=== PATIENT | female | born 1960 | race Caucasian/White ===

== ENCOUNTER 2016-10-27 08:48 | Inpatient (IN) | payer MEDICAID ==
--- NOTE | 2016-10-27 09:49 | ER Document Report ---
ED Neuro Symptoms/Deficit - General Mode of Arrival: Ambulatory Information source: Patient, Relative Notes: Patient is a 55-year-old female presenting to the emergency department with possible stroke symptoms. Patient states she had a weakness onset at 1300 yesterday and then numbness at 1500 yesterday. Patient also fell while trying to go to the bathroom last night. Patient does not complain of any injuries or head injuries related to the fall. Patient is experiencing weakness and numbness to her right hand/arm, right face, and right leg. Patient also has slurred speech. Patient has history of type 2 diabetes mellitus, hypertension, hypothyroidism, and hyperlipidemia. Patient takes metformin, glyburide, chlorthalidone, Synthroid and a hyperlipidemia medication as well which she cannot remember the name of. Patient denies any history of stroke or coronary artery disease. Patient's family and friends are at the bedside. Patient's primary care physician is Dr. Jericho Wells in [place]. TRAVEL OUTSIDE OF THE [place] IN LAST 30 DAYS: No - HPI Patient complains to provider of: Facial Droop, Falling, Speech Impairment, Weakness, Other - numbness Onset: Yesterday - Refer to HPI notes New weakness: RUE, RLE, R facial Altered sensation: RLE, R facial Decreased ability to stand/walk: Weak <WILY GUARDADO - Last Filed: 10/27/16 10:10> - General Notes: This 55-year-old female patient with diabetes, hypertension, hyperlipidemia, hypothyroidism appears to have suffered a left basal ganglia infarct yesterday afternoon. She has been symptomatic for over 20 hours. She is not a TPA candidate at this time due to the length of time since onset of symptoms. <ANNA HARRISON - Last Filed: 10/27/16 10:36> - General Chief Complaint: S/S of Possible Stroke Stated Complaint: RIGHT SIDE NUMBNESS Time Seen by Provider: 10/27/16 09:19 - Related Data Allergies/Adverse Reactions: strawberry Allergy (Verified 10/27/16 09:20) Past Medical History - General Information source: Patient, Relative - Social History Smoking Status: Never Smoker Cigarette use (# per day): No Chew tobacco use (# tins/day): No Frequency of alcohol use: Occasional Drug Abuse: None Family History: None Patient has suicidal ideation: No Patient has homicidal ideation: No - Past Medical History Cardiac Medical History: Reports: Hx Hypercholesterolemia, Hx Hypertension Endocrine Medical History: Reports: Hx Diabetes Mellitus Type 2, Hx Hypothyroidism Past Surgical History: Reports: Hx Tubal Ligation - Immunizations Hx Diphtheria, Pertussis, Tetanus Vaccination: No <WILY GUARDADO - Last Filed: 10/27/16 10:10> Review of Systems - Review of Systems Constitutional: See HPI, Weakness EENT: See HPI Cardiovascular: No symptoms reported Respiratory: No symptoms reported Gastrointestinal: No symptoms reported Genitourinary: No symptoms reported Female Genitourinary: No symptoms reported Musculoskeletal: See HPI Skin: No symptoms reported Hematologic/Lymphatic: No symptoms reported Neurological/Psychological: See HPI, Weakness, Speech impairment, Numbness -: Yes All other systems reviewed and negative <WILY GUARDADO - Last Filed: 10/27/16 10:10> Physical Exam - Vital signs Vitals: Temp Pulse Resp BP Pulse Ox 97.8 F 102 H 20 174/87 H 99 10/27/16 08:49 10/27/16 08:49 10/27/16 08:49 10/27/16 08:49 10/27/16 08:49 - Notes Notes: GENERAL: Alert, interacts well. Slurred speech. Mild distress. HEAD: Normocephalic, atraumatic. Right sided facial weakness. EYES: Appear normal. Pupils equal, round, and reactive to light. ENT: Moist mucus membranes. When protruding the tongue, it deviates to the right. NECK: Full range of motion. Supple. LUNGS: Clear to auscultation bilaterally, no wheezes, rales, or rhonchi. No respiratory distress. HEART: Regular rate and rhythm. No murmurs, gallops, or rubs. ABDOMEN: Soft, non-tender. Non-distended. Normal bowel sounds. EXTREMITIES: Right upper extremity and right lower extremity weakness, patient can lift these extremities a few inches off the bed against gravity but cannot hold them for very long before they fall back to the bed. NEUROLOGICAL: Alert and oriented x3. Slurred speech. PSYCH: Normal affect, normal mood. SKIN: Warm, dry, normal turgor. <GEOWILY - Last Filed: 10/27/16 10:10> - Vital signs Vitals: Temp Pulse Resp BP Pulse Ox 97.8 F 102 H 20 174/87 H 99 10/27/16 08:49 10/27/16 08:49 10/27/16 08:49 10/27/16 08:49 10/27/16 08:49 <ANNA HARRISON - Last Filed: 10/27/16 10:36> Course - Vital Signs Vital signs: Temp Pulse Resp BP Pulse Ox 97.8 F 102 H 20 174/87 H 99 10/27/16 08:49 10/27/16 09:15 10/27/16 09:15 10/27/16 09:15 10/27/16 09:15 - Laboratory Result Diagrams: 10/27/16 09:14 10/27/16 09:14 Laboratory results interpreted by me: 10/27/16 09:12 POC Glucose 269 H <WILY GUARDADO - Last Filed: 10/27/16 10:10> - Vital Signs Vital signs: Temp Pulse Resp BP Pulse Ox 97.8 F 102 H 13 167/86 H 99 10/27/16 08:49 10/27/16 09:15 10/27/16 10:01 10/27/16 10:00 10/27/16 10:01 - Laboratory Result Diagrams: 10/27/16 09:14 10/27/16 09:14 Laboratory results interpreted by me: 10/27/16 10/27/16 10/27/16 09:12 09:14 09:14 WBC 11.0 H BUN 26 H Est GFR (Non-Af Amer) 53 L Glucose 266 H POC Glucose 269 H Calcium 10.3 H - Diagnostic Test Radiology reviewed: Image reviewed, Reports reviewed - CT scan shows 2 left basal ganglia lacunar infarcts - EKG Interpretation by Nh EKG shows normal: Sinus rhythm, [place], Intervals, QRS Complexes, ST-T Waves Rate: Normal - 99 Rhythm: NSR When compared to previous EKG there are: Previous EKG unavailable - Consults Jane Reyes Time consulted: 10:30 Consulted provider: will come to ER <ANNA HARRISON - Last Filed: 10/27/16 10:36> ED [employer]/Exc Criteria ED NIH Stroke Scale - NIH Stroke Scale When completed:: Protocol *: 1. NIH scale should be completed with appropriate accompanying assessment tools. *: 2. The NIH should reflect what the patient is capable of doing and should not be coached by the clinician. 1a. Level of Consciousness: 0=Alert;keenly responsive -: 1=Drowsy -: 2=Obtunded -: 3=Coma/unresponsive or reflex to noxious stimuli. 1a. Responses: 0 1b. Orientation Questions: a. What month is it? -: b. How old are you? -: 0=Answers both questions correctly. -: 1=Answers one question correctly or patient is intubated or has orotracheal trauma. -: 2=Answers neither question correctly. 1b. Responses: 0 1c. Response to commands: a. Open and close eyes? -: b. Service Station Console Operator and release hand? -: Credit is given despite weakness. Demonstration of task is permitted. Substitute command if hands cannot be used. -: 0=Performs both tasks correctly -: 1=Performs one task correctly -: 2=Performs neither task correctly 1c. Responses: 0 2. Gaze: Establish eye contact and instruct patient to "Follow my finger" -: 0=Normal -: 1=Partial gaze palsy. Gaze is abnormal in one or both eyes, but where forced deviation or total gaze paresis is not present. -: 2=Forced deviation or total gaze paresis. 3. Visual Man: Sees fingers in all four quadrants. -: 0=No visual loss. -: 1=Partial hemianopsia. -: 2=Complete hemianopsia. -: 3=Bilateral hemianopsia (including Cortical blindness) 4. Facial Movement: Instruct patient to: -: a. Show me your teeth -: b. Raise your eyebrows -: c. Close your eyes -: d. Smile -: 0=Normal symmetrical movement -: 1=Minor paralysis (flattened nasolabial fold, asymmetry on smiling). -: 2=Partial paralysis (total or near total paralysis of lower face). -: 3=Complete paralysis of upper and lower face 4. Responses: 1 - tongue deviates to the right side 5. Motor functions (left arm): Alternate sides and extend each arm with palms down (90 degrees if sitting or 45 degrees for supine). -: 0=No drift;limb holds for full 10 seconds. -: 1=Drift; limb holds but drifts down before full 10 seconds, but does not hit bed. -: 2=Some effort against gravity; limb cannot get to or maintain position. -: 3=No effort against gravity; limb falls. -: 4=No movement. -: UN=Amputation, joint fusion, explain in comments. 5. Responses (left arm): 0 5. Motor Functions (right arm): Alternate sides and extend each arm with palms down (90 degrees if sitting or 45 degrees for supine). -: 0=No drift;limb holds for full 10 seconds. -: 1=Drift; limb holds but drifts down before full 10 seconds, but does not hit bed. -: 2=Some effort against gravity; limb cannot get to or maintain position. -: 3=No effort against gravity; limb falls. -: 4=No movement. -: UN=Amputation, joint fusion, explain in comments. 5. Responses (right arm): 2 6. Motor Functions (left leg): With patient lying supine, alternate sides and extend each leg (30 degrees always while supine). -: 0=No drift, leg holds position for full 5 seconds -: 1=Drift; leg falls before full 5 seconds but does not hit bed. -: 2=Some effort against gravity, leg falls to bed but some effort against gravity. -: 3=No effort against gravity, leg falls to bed immediately. -: 4=No movement. -: UN=Amputation, joint fusion; explain in comments. 6. Responses (left leg): 0 6. Motor Functions (right leg): With patient lying supine, alternate sides and extend each leg (30 degrees always while supine). -: 0=No drift, leg holds position for full 5 seconds -: 1=Drift; leg falls before full 5 seconds but does not hit bed. -: 2=Some effort against gravity, leg falls to bed but some effort against gravity. -: 3=No effort against gravity, leg falls to bed immediately. -: 4=No movement. -: UN=Amputation, joint fusion; explain in comments. 6. Responses (right leg): 2 7. Limb Ataxia: With eyes open instruct patient to: -: a. "Touch your finger to your nose". -: b. "Touch your heel to your brower" -: 0=Absent -: 1=Present in one limb. -: 2=Present in two limbs. -: UN=Amputation or joint fusion; explain in comments. 8. Sensory: Test sensation using pinprick or noxious stimuli. Test as many body parts as possible. -: 0=Normal;no sensory loss -: 1=Mile to moderate sensory loss (patient feels pin prick but is less sharp on affected side). -: 2=Severe or total sensory loss. 9. Best Language: Instruct patient to: -: a. "Describe what you see in this picture." -: b. "Name the items in this picture." -: c. "Read these sentences." -: 0=No aphasia, normal -: 1=Mild to moderate aphasia. -: 2=Severe aphasia -: 3=Mute, global aphasia, no usable speech or auditory comprehension. 10. Articulation, Dysarthia: Instruct patient to: -: "Read these words" or "Repeat these words" -: 0=Normal -: 1=Mild to moderate; patient may slur some words but can be understood without difficulty. -: 2=Severe; patients speech so slurred as to be unintelligible in the absence of dysphasia. -: UN=Intubated or other physical barrier, explain in comments. 11. Extinction or inattention: 0=No abnormality -: 1= Visual, tactile, auditory, spatial, or personal inattention or extinction to bilateral simulation in one or the sensory modalities. -: 2=Profound herman-inattention or herman-inattention to more than one modality; does not recognize own hand. Total Score: 5 <WILY GUARDADO - Last Filed: 10/27/16 10:10> Discharge <WILY GUARDADO - Last Filed: 10/27/16 10:10> - Discharge Admitting Provider: Hospitalist Unit Admitted: ALEX Guerrier Attestation: 10/27/16 10:35 I personally performed the services described in the documentation, reviewed and edited the documentation which was dictated to the scribe in my presence, and it accurately records my words and actions. <ANNA HARRISON - Last Filed: 10/27/16 10:36> - Discharge Clinical Impression: Acute lacunar infarction Diabetes Qualifiers: Diabetes mellitus type: type 2 Diabetes mellitus complication status: without complication Diabetes mellitus usp insulin use: without usp use Qualified Code(s): E11.9 - Type 2 diabetes mellitus without complications Condition: Stable Disposition: ADMITTED INPATIENT Scribe Documentation - Scribe Written by Fareed:: Fareed Boucher, 10/27/2016 10:11 acting as scribe for :: Ravinder <WILY GUARDADO - Last Filed: 10/27/16 10:10>
[2016-10-27 10:07] LABS: ABSOLUTE BASOPHILS # (AUTO) 0.1 10^3/uL (0.0-0.2); ABSOLUTE EOSINOPHILS # (AUTO) 0.3 10^3/uL (0.0-0.6); ABSOLUTE LYMPHOCYTES (AUTO) 2.4 10^3/uL (0.5-4.7); ABSOLUTE NEUT (AUTO) 7.3 10^3/uL (1.7-8.2); BASOPHILS % (AUTO) 0.7 % (0-2); HEMATOCRIT 41.7 % (36.0-47.0); HEMOGLOBIN 13.8 g/dL (12.0-15.5); HGB HCT DIFFERENCE -0.3; LYMPHOCYTES % (AUTO) 21.9 % (13-45); MEAN CORPUSCULAR HEMOGLOBIN 30.3 pg (27.0-33.4); MEAN CORPUSCULAR HGB CONC 33.2 g/dL (32.0-36.0); MEAN CORPUSCULAR VOLUME 91 fl (80-97); MONOCYTES % (AUTO) 8.7 % (3-13); RED BLOOD COUNT 4.57 10^6/uL (3.72-5.28); RED CELL DISTRIBUTION WIDTH 13.1 % (11.5-14.0); SEGMENTED NEUTROPHILS % (AUTO) 65.7 % (42-78)
[2016-10-27 10:11] LABS: PROTHROMBIN TIME 11.8 SEC (11.4-15.4)
[2016-10-27 10:12] LABS: PARTIAL THROMBOPLASTIN TIME 26.4 SEC (23.5-35.8)
[2016-10-27 10:19] LABS: ALANINE AMINOTRANSFERASE 44 U/L (9-52); ALBUMIN 4.1 g/dL (3.5-5.0); ALKALINE PHOSPHATASE 102 U/L (38-126); ANION GAP 13 (5-19); ASPARTATE AMINO TRANSFERASE 28 U/L (14-36); BILIRUBIN,DIRECT 0.4 mg/dL (0.0-0.4); BILIRUBIN,TOTAL 0.7 mg/dL (0.2-1.3); BLOOD UREA NITROGEN 26 mg/dL (7-20); CALCIUM 10.3 mg/dL (8.4-10.2); CARBON DIOXIDE 26 mmol/L (22-30); CHLORIDE 98 mmol/L (98-107); CREATINE KINASE 46 U/L (30-135); CREATININE RESULT 1.08 mg/dL (0.52-1.25); GLUCOSE 266 mg/dL (75-110); POTASSIUM 4.1 mmol/L (3.6-5.0); TOTAL PROTEIN 8.1 g/dL (6.3-8.2)
--- NOTE | 2016-10-27 10:25 | RADIOLOGY REPORT (SQ) ---
EXAM DESCRIPTION: CT HEAD WITHOUT COMPLETED DATE/TIME: 10/27/2016 10:11 am REASON FOR STUDY: stroke COMPARISON: None. TECHNIQUE: Axial images acquired through the brain without intravenous contrast. Images reviewed wi th bone, brain and subdural windows. Images stored on PACS. All CT scanners at this facility use dose modulation, iterative reconstruction, and/or weight based d osing when appropriate to reduce radiation dose to as low as reasonably achievable (ALARA). [facility]: Dose Right [facility]: CareDose [facility]: Dose Right [facility]: Teradose 4D [facility]: Smart My-Hammer RADIATION DOSE: Up-to-date CT equipment and radiation dose reduction techniques were employed. CTDIv ol: 64.6 mGy. DLP: 1034 mGy-cm. mGy. LIMITATIONS: None. FINDINGS: VENTRICLES: Normal size and contour. CEREBRUM: No masses. No hemorrhage. No midline shift. Normal gould/white matter differentiation. T here are a couple focal areas of relative decreased density in the basal ganglia on the left which ma y represent evolving areas of infarction. CEREBELLUM: No masses. No hemorrhage. No alteration of density. No evidence for acute infarction. EXTRAAXIAL SPACES: No fluid collections. No masses. ORBITS AND GLOBE: No intra- or extraconal masses. Normal contour of globe without masses. CALVARIUM: No fracture. PARANASAL SINUSES: No fluid or mucosal thickening. SOFT TISSUES: No mass or hematoma. OTHER: No other significant finding. IMPRESSION: There are couple focal areas of relative decreased density in the basal ganglia on the l eft which may represent evolving areas of infarction. No other significant intracranial abnormalitie s were identified. Other findings as noted above COMMENT: Pertinent positive or negative findings of the imaging study reported as a CRITICAL EXAM nina HARRISON MD at10:14 on 10/27/2016. Category of Critical Exam: Stroke alert TECHNICAL DOCUMENTATION: JOB ID: [id number] Quality ID # [id number]: Final reports with documentation of one or more dose reduction techniques (e.g., Au tomated exposure control, adjustment of the mA and/or kV according to patient size, use of iterative reconstruction technique) 2010 [employer] All Rights Reserved
[2016-10-27 10:31] LABS: CREATINE KINASE MB 0.77 ng/mL (<4.55)
[2016-10-27 10:32] LABS: TROPONIN I < 0.012 ng/mL
--- NOTE | 2016-10-27 10:32 | RADIOLOGY REPORT (SQ) ---
EXAM DESCRIPTION: CHEST SINGLE VIEW COMPLETED DATE/TIME: 10/27/2016 10:21 am REASON FOR STUDY: CVA yesterday COMPARISON: None. EXAM PARAMETERS: NUMBER OF VIEWS: One view. TECHNIQUE: Single frontal radiographic view of the chest acquired. RADIATION DOSE: NA LIMITATIONS: None. FINDINGS: LUNGS AND PLEURA: No opacities, masses or pneumothorax. No pleural effusion. MEDIASTINUM AND HILAR STRUCTURES: No masses. Contour normal. HEART AND VASCULAR STRUCTURES: Heart normal in size. Normal vasculature. BONES: No acute findings. HARDWARE: None in the chest. OTHER: No other significant finding. IMPRESSION: NO ACUTE RADIOGRAPHIC FINDING IN THE CHEST. TECHNICAL DOCUMENTATION: JOB ID: [id number]
[2016-10-27] MEDS ORDERED: DOCUSATE SODIUM 100 MG CAPSULE PO PRN (10:42)
[2016-10-27] MEDS ORDERED: ACETAMINOPHEN 325 MG TABLET PO PRN (10:42)
[2016-10-27] MEDS ORDERED: HYDROCODONE/ACETAMINOPHEN 5-325 MG TABLET PO PRN (10:42)
[2016-10-27] MEDS ORDERED: DEXTROSE 50%-WATER 25 GM/50 ML DISP.SYRIN IV PRN ×2 (10:50)
[2016-10-27] MEDS ORDERED: GLUCAGON,HUMAN RECOMB 1 MG INJ IM PRN (10:50)
[2016-10-27] MEDS ORDERED: DEXTROSE 40% GEL 15 GM TUBE PO PRN ×2 (10:50)
[2016-10-27] MEDS: INSULIN LISPRO 100 UNIT/ML 3 ML VIAL SUBCUT PRN ×3 (12:07→22:31)
--- NOTE | 2016-10-27 13:11 | PDOC H&P ---
History of Present Illness Admission Date/PCP: 10/27/16 10:42 JERICHO WELLS MD Patient complains of: Right arm and leg weakness History of Present Illness: Era Barron is a 55-year-old female presenting to the emergency department with possible stroke symptoms. Patient states she had a weakness onset at 1300 yesterday and then numbness at 1500 yesterday. Patient also fell while trying to go to the bathroom last night. Patient does not complain of any injuries or head injuries related to the fall. Patient is experiencing weakness and numbness to her right hand/arm, right face, and right leg. Patient also has slurred speech. Her symptoms have not worsened or improved since the onset. Patient has history of type 2 diabetes mellitus, hypertension , hypothyroidism, and hyperlipidemia. Patient takes metformin, glyburide, chlorthalidone, Synthroid and a hyperlipidemia medication as well which she cannot remember the name of. Patient denies any history of stroke or coronary artery disease. Patient's family and friends are at the bedside. Patient's primary care physician is Dr. Jericho Wells in [place]. Medication reconciliaton is pending. Patient is unsure of current doses of medications she takes Past Medical History Cardiac Medical History: Reports: Hyperlipidema, Hypertension Pulmonary Medical History: Reports: None EENT Medical History: Reports: None Neurological Medical History: Reports: None Endocrine Medical History: Reports: Diabetes Mellitus Type 2, Hypothyroidism, Obesity Renal/ Medical History: Reports: None Malignancy Medical History: Reports: None GI Medical History: Reports: None Musculoskeltal Medical History: Reports: None Skin Medical History: Reports: Eczema Psychiatric Medical History: Reports: None Denies: Depression Traumatic Medical History: Reports: None Hematology: Reports: None Infectious Medical History: Reports: None Past Surgical History Past Surgical History: Reports: Tubal Ligation Social History Information Source: Patient Lives with: Family Smoking Status: Never Smoker Frequency of Alcohol Use: Rare Hx Recreational Drug Use: No Drugs: None Hx Prescription Drug Abuse: No - Advance Directive Resuscitation Status: Full Code Surrogate healthcare decision maker:: , Pato should patient be incapacitated Family History Family History: CVA, DM, Hyperlipidemia, Hypertension, Thyroid Disfunction Parental Family History Reviewed: Yes Children Family History Reviewed: Yes Sibling(s) Family History Reviewed.: Yes Medication/Allergy Allergies/Adverse Reactions: strawberry Allergy (Verified 10/27/16 09:20) Review of Systems Constitutional: PRESENT: weakness. ABSENT: chills, fever(s), headache(s), weight gain, weight loss Eyes: ABSENT: visual disturbances Ears: ABSENT: hearing changes Cardiovascular: ABSENT: chest pain, dyspnea on exertion, edema, orthropnea, palpitations Respiratory: ABSENT: cough, hemoptysis Gastrointestinal: ABSENT: abdominal pain, constipation, diarrhea, hematemesis, hematochezia, nausea, vomiting Genitourinary: ABSENT: dysuria, hematuria Musculoskeletal: ABSENT: joint swelling Integumentary: PRESENT: other Neurological: PRESENT: abnormal gait, focal weakness, lack of coordination, numbness, paresthesias - right arm and leg, weakness Psychiatric: ABSENT: anxiety, depression, homidical ideation, suicidal ideation Endocrine: ABSENT: cold intolerance, heat intolerance, polydipsia, polyuria Hematologic/Lymphatic: ABSENT: easy bleeding, easy bruising Physical Exam Vital Signs: Temp Pulse Resp BP Pulse Ox 98.2 F 87 20 186/76 H 100 10/27/16 12:11 10/27/16 12:11 10/27/16 12:11 10/27/16 12:11 10/27/16 12:11 Intake & Output 10/26/16 10/27/16 10/28/16 06:59 06:59 06:59 Weight 74.9 kg General appearance: PRESENT: no acute distress, obese, well-developed, well- nourished Head exam: PRESENT: atraumatic, normocephalic Mouth exam: PRESENT: moist, tongue midline Neck exam: ABSENT: carotid bruit, JVD, lymphadenopathy, thyromegaly Respiratory exam: PRESENT: clear to auscultation lalo. ABSENT: rales, rhonchi, wheezes Cardiovascular exam: PRESENT: RRR. ABSENT: diastolic murmur, rubs, systolic murmur Pulses: PRESENT: normal carotid pulses, normal radial pulses Vascular exam: PRESENT: normal capillary refill GI/Abdominal exam: PRESENT: normal bowel sounds, soft. ABSENT: distended, guarding, mass, organolmegaly, rebound, tenderness Rectal exam: PRESENT: deferred Extremities exam: PRESENT: full ROM Musculoskeletal exam: PRESENT: full ROM, normal inspection, other Neurological exam: PRESENT: alert, awake, oriented to person, oriented to place , oriented to time, oriented to situation, other - 3/5 muscle strength on the right. Right tongue lag, facial muscle weakness on the right. ABSENT: motor sensory deficit Psychiatric exam: PRESENT: appropriate affect, normal mood. ABSENT: homicidal ideation, suicidal ideation Skin exam: PRESENT: dry, intact, warm. ABSENT: cyanosis, rash Results Impressions: Head CT 10/27/16 09:44 IMPRESSION: There are couple focal areas of relative decreased density in the basal ganglia on the left which may represent evolving areas of infarction. No other significant intracranial abnormalities were identified. Other findings as noted above Chest X-Ray 10/27/16 10:08 IMPRESSION: NO ACUTE RADIOGRAPHIC FINDING IN THE CHEST. Assessment & Plan - Diagnosis (1) Acute lacunar infarction Is this a current diagnosis for this admission?: YesPlan: Will start patient on aspirin, statin, PT/OT and speech therapy (2) Diabetes Qualifiers: Diabetes mellitus type: type 2 Diabetes mellitus complication status: without complication Diabetes mellitus ocean transportation intermediary insulin use: without ocean transportation intermediary use Qualified Code(s): E11.9 - Type 2 diabetes mellitus without complications Is this a current diagnosis for this admission?: YesPlan: Poorly controlled. HBA1C 13.6 will start on lantus, sliding scale coverage (3) Essential (primary) hypertension Is this a current diagnosis for this admission?: YesPlan: Continue home medications. Presently she is normotensive (4) Dyslipidemia Is this a current diagnosis for this admission?: YesPlan: Statin therapy (5) Hypothyroid Qualifiers: Hypothyroidism type: acquired Qualified Code(s): E03.9 - Hypothyroidism, unspecified Is this a current diagnosis for this admission?: YesPlan: Continue synthroid (6) Obesity (BMI 30-39.9) Is this a current diagnosis for this admission?: YesPlan: Counseled - Time Time Spent: 50 to 70 Minutes Critical Time spent with patient: 25-34 minutes Medications reviewed and adjusted accordingly: Yes
[2016-10-27 16:54] LABS: APPEARANCE,URINE CLOUDY; BILIRUBIN,URINE NEGATIVE (NEGATIVE); GLUCOSE, URINE >=500 mg/dL (NEGATIVE); KETONES,URINE TRACE mg/dL (NEGATIVE); LEUKOCYTE ESTERASE,URINE MODERATE (NEGATIVE); NITRITE,URINE POSITIVE (NEGATIVE); PROTEIN,URINE NEGATIVE (NEGATIVE); URINE SPECIFIC GRAVITY 1.021; UROBILINOGEN,URINE NEGATIVE mg/dL (<2.0)
[2016-10-27] MEDS: GLYBURIDE 5 MG TABLET PO SCH (17:11)
[2016-10-27] MEDS: METFORMIN HCL 500 MG TABLET PO SCH (17:11)
[2016-10-27] MEDS ORDERED: METFORMIN HCL 500 MG TABLET PO SCH (18:00)
--- NOTE | 2016-10-27 18:01 | EKG REPORT ---
SEVERITY:- ABNORMAL ECG - SINUS RHYTHM ANTERIOR INFARCT, AGE INDETERMINATE : Confirmed by: Terry Goodman MD 27-Oct-2016 18:00:30
[2016-10-27] MEDS: ATORVASTATIN CALCIUM 40 MG TABLET PO SCH (21:06)
[2016-10-28 04:53] LABS: ABSOLUTE EOSINOPHILS # (AUTO) 0.2 10^3/uL (0.0-0.6); ABSOLUTE LYMPHOCYTES (AUTO) 1.8 10^3/uL (0.5-4.7); ABSOLUTE MONOCYTES (AUTO) 0.8 10^3/uL (0.1-1.4); ABSOLUTE NEUT (AUTO) 9.1 10^3/uL (1.7-8.2); BASOPHILS % (AUTO) 0.4 % (0-2); EOSINOPHILS % (AUTO) 1.6 % (0-6); HEMATOCRIT 41.3 % (36.0-47.0); HEMOGLOBIN 13.4 g/dL (12.0-15.5); HGB HCT DIFFERENCE -1.1; LYMPHOCYTES % (AUTO) 14.8 % (13-45); MEAN CORPUSCULAR HEMOGLOBIN 29.6 pg (27.0-33.4); MEAN CORPUSCULAR HGB CONC 32.4 g/dL (32.0-36.0); MEAN CORPUSCULAR VOLUME 91 fl (80-97); MONOCYTES % (AUTO) 6.5 % (3-13); RED BLOOD COUNT 4.52 10^6/uL (3.72-5.28); RED CELL DISTRIBUTION WIDTH 13.2 % (11.5-14.0); SEGMENTED NEUTROPHILS % (AUTO) 76.7 % (42-78); WHITE BLOOD COUNT 11.8 10^3/uL (4.0-10.5)
[2016-10-28 05:07] LABS: ALANINE AMINOTRANSFERASE 39 U/L (9-52); ALBUMIN 3.9 g/dL (3.5-5.0); ALKALINE PHOSPHATASE 88 U/L (38-126); ANION GAP 10 (5-19); ASPARTATE AMINO TRANSFERASE 23 U/L (14-36); BILIRUBIN,DIRECT 0.3 mg/dL (0.0-0.4); BILIRUBIN,TOTAL 0.5 mg/dL (0.2-1.3); BLOOD UREA NITROGEN 28 mg/dL (7-20); CALCIUM 9.8 mg/dL (8.4-10.2); CARBON DIOXIDE 28 mmol/L (22-30); CHLORIDE 97 mmol/L (98-107); CHOLESTEROL 213.53 mg/dL (0-200); CREATININE RESULT 0.88 mg/dL (0.52-1.25); Direct HDL 34 mg/dL (>40); GLUCOSE 266 mg/dL (75-110); POTASSIUM 3.9 mmol/L (3.6-5.0); SODIUM 135.4 mmol/L (137-145); TOTAL PROTEIN 7.4 g/dL (6.3-8.2); TRIGLYCERIDES 243 mg/dL (<150)
[2016-10-28 05:18] LABS: DIRECT LDL 157 mg/dL (<100)
[2016-10-28 05:22] LABS: VLDL CHOLESTEROL 48.6 mg/dL (10-31)
[2016-10-28] MEDS ORDERED: ONDANSETRON HCL INJ/PF 4 MG/2 ML SDV IV ONE (05:45)
[2016-10-28] MEDS: INSULIN LISPRO 100 UNIT/ML 3 ML VIAL SUBCUT PRN (08:16)
[2016-10-28] MEDS: CIPROFLOXACIN HCL 500 MG TABLET PO SCH ×2 (09:17→21:23)
[2016-10-28] MEDS: ASPIRIN 325 MG TABLET, ENT COATED PO SCH (09:17)
[2016-10-28] MEDS: BENAZEPRIL HCL 10 MG TABLET PO SCH (09:18)
[2016-10-28] MEDS: LEVOTHYROXINE SODIUM 0.088 MG TABLET PO SCH (09:18)
[2016-10-28] MEDS: CHLORTHALIDONE 25 MG TABLET PO SCH (09:18)
[2016-10-28] MEDS: GLYBURIDE 5 MG TABLET PO SCH ×2 (09:18→17:32)
[2016-10-28] MEDS: METFORMIN HCL 500 MG TABLET PO SCH ×2 (09:19→17:32)
[2016-10-28] MEDS: ENOXAPARIN SODIUM INJ 40 MG/0.4 ML DISP.SYRIN SUBCUT SCH (09:19)
--- NOTE | 2016-10-28 14:03 | PDOC PROGRESS REPORT ---
Subjective Progress Note for:: 10/28/16 Subjective:: Patient seen on morning rounds. She is resting comfortably in bed. She has more strength in the right lower extremity than yesterday. Her right arm is about the same. She denies any shortness of breath, dyspnea or dizziness. She denies any nausea, diarrhea or abdominal pain. She denies any dysuria. Her urinalysis is positive for nitrates, and leucocytes. Urine is foul smelling according to nursing. She denies any other complaints at the present time. Physical Exam Vital Signs: Temp Pulse Resp BP Pulse Ox 98.2 F 84 18 123/77 100 10/28/16 12:19 10/28/16 12:19 10/28/16 12:19 10/28/16 12:19 10/28/16 12:19 Intake & Output 10/27/16 10/28/16 10/29/16 06:59 06:59 06:59 Intake Total 1000 222 Output Total 1600 Balance -600 222 Weight 75.4 kg General appearance: PRESENT: no acute distress, obese, well-developed, well- nourished Head exam: PRESENT: atraumatic, normocephalic Eye exam: PRESENT: conjunctiva pink, EOMI, PERRLA. ABSENT: scleral icterus Ear exam: PRESENT: normal external ear exam Mouth exam: PRESENT: moist, tongue midline Respiratory exam: PRESENT: clear to auscultation lalo. ABSENT: rales, rhonchi, wheezes Cardiovascular exam: PRESENT: RRR. ABSENT: diastolic murmur, rubs, systolic murmur Pulses: PRESENT: normal dorsalis pedis pul Vascular exam: PRESENT: normal capillary refill GI/Abdominal exam: PRESENT: normal bowel sounds, soft. ABSENT: distended, guarding, mass, organolmegaly, rebound, tenderness Extremities exam: PRESENT: full ROM. ABSENT: calf tenderness, clubbing, pedal edema Neurological exam: PRESENT: alert, awake, oriented to person, oriented to place , oriented to time, oriented to situation, CN II-XII grossly intact. ABSENT: motor sensory deficit Psychiatric exam: PRESENT: appropriate affect, normal mood. ABSENT: homicidal ideation, suicidal ideation Skin exam: PRESENT: dry, intact, warm. ABSENT: cyanosis, rash Results Laboratory Results: 10/28/16 03:41 10/28/16 03:41 10/27/16 10/28/16 10/28/16 16:00 03:41 03:41 WBC 11.8 H RBC 4.52 Hgb 13.4 Hct 41.3 MCV 91 MCH 29.6 MCHC 32.4 RDW 13.2 Plt Count 265 Seg Neutrophils % 76.7 Lymphocytes % 14.8 Monocytes % 6.5 Eosinophils % 1.6 Basophils % 0.4 Absolute Neutrophils 9.1 H Absolute Lymphocytes 1.8 Absolute Monocytes 0.8 Absolute Eosinophils 0.2 Absolute Basophils 0.0 Sodium 135.4 L Potassium 3.9 Chloride 97 L Carbon Dioxide 28 Anion Gap 10 BUN 28 H Creatinine 0.88 Est GFR ( Amer) > 60 Est GFR (Non-Af Amer) > 60 Glucose 266 H Calcium 9.8 Total Bilirubin 0.5 AST 23 ALT 39 Alkaline Phosphatase 88 Total Protein 7.4 Albumin 3.9 Triglycerides 243 H Cholesterol 213.53 H LDL Cholesterol Direct 157 H VLDL Cholesterol 48.6 H HDL Cholesterol 34 L Urine Color YELLOW Urine Appearance CLOUDY Urine pH 5.0 Ur Specific [place] 1.021 Urine Protein NEGATIVE Urine Glucose (UA) >=500 H Urine Ketones TRACE H Urine Blood NEGATIVE Urine Nitrite POSITIVE H Ur Leukocyte Esterase MODERATE H Urine WBC (Auto) 11 Urine RBC (Auto) 3 Impressions: Head CT 10/27/16 09:44 IMPRESSION: There are couple focal areas of relative decreased density in the basal ganglia on the left which may represent evolving areas of infarction. No other significant intracranial abnormalities were identified. Other findings as noted above Chest X-Ray 10/27/16 10:08 IMPRESSION: NO ACUTE RADIOGRAPHIC FINDING IN THE CHEST. Assessment & Plan - Diagnosis (1) Acute lacunar infarction Is this a current diagnosis for this admission?: YesPlan: Will start patient on aspirin, statin, PT/OT and speech therapy (2) Diabetes Qualifiers: Diabetes mellitus type: type 2 Diabetes mellitus complication status: without complication Diabetes mellitus superintendent terminal insulin use: without penitentiary use Qualified Code(s): E11.9 - Type 2 diabetes mellitus without complications Is this a current diagnosis for this admission?: YesPlan: Poorly controlled. HBA1C 13.6 will start on lantus, sliding scale coverage (3) Essential (primary) hypertension Is this a current diagnosis for this admission?: YesPlan: Continue home medications. Presently she is normotensive (4) Dyslipidemia Is this a current diagnosis for this admission?: YesPlan: Statin therapy (5) Hypothyroid Qualifiers: Hypothyroidism type: acquired Qualified Code(s): E03.9 - Hypothyroidism, unspecified Is this a current diagnosis for this admission?: YesPlan: Continue synthroid (6) Obesity (BMI 30-39.9) Is this a current diagnosis for this admission?: YesPlan: Counseled - Time Time Spent with patient: 25-34 minutes Critical Time spent with patient: 15-24 minutes Medications reviewed and adjusted accordingly: Yes Anticipated discharge: Home with Homehealth
--- NOTE | 2016-10-28 15:38 | RADIOLOGY REPORT (SQ) ---
EXAM DESCRIPTION: CAROTID DOPPLER COMPLETED DATE/TIME: 10/28/2016 3:08 pm REASON FOR STUDY: Acute right cva COMPARISON: None. TECHNIQUE: Grayscale ultrasound, Doppler velocity and spectra, and color Doppler images acquired of the extra-cranial carotid and vertebral arteries. Images stored on PACS. LIMITATIONS: None. FINDINGS: RIGHT CAROTID CCA Velocities: Within normal limits. ICA Velocities Peak systolic 0.85 m/s. End diastolic 0.34 m/s. Proximal ICA/CCA peak systolic ratio 1.1. Spectra normal. No significant plaque. LEFT CAROTID CCA Velocities: Within normal limits. ICA Velocities Peak systolic 0.85 m/s. End diastolic 0.32 m/s. Proximal ICA/CCA peak systolic ratio 1.2. Spectra normal. No significant plaque. VERTEBRAL ARTERIES: Antegrade flow. Normal waveforms. SUBCLAVIAN ARTERIES: No finding. OTHER: No other significant finding. IMPRESSION: NO HEMODYNAMICALLY SIGNIFICANT STENOSIS. COMMENT: Quality ID #[id number]: Velocity criteria are extrapolated from the diameter data as defined by t he Society of Radiologists in Ultrasound Consensus Conference. Radiology 2003: 229; 340-346. TECHNICAL DOCUMENTATION: JOB ID: [id number] [employer]- All Rights Reserved
[2016-10-28] MEDS: INSULIN GLARGINE,HUM.REC.ANLOG 300 UNIT/3 ML INSULN.PEN SUBCUT SCH (21:22)
[2016-10-28] MEDS: ATORVASTATIN CALCIUM 40 MG TABLET PO SCH (21:23)
[2016-10-29] MEDS: ONDANSETRON HCL INJ/PF 4 MG/2 ML SDV IV PRN ×2 (09:21→18:20)
[2016-10-29] MEDS: LEVOTHYROXINE SODIUM 0.088 MG TABLET PO SCH (09:25)
[2016-10-29] MEDS: BENAZEPRIL HCL 10 MG TABLET PO SCH (09:25)
[2016-10-29] MEDS: ASPIRIN 325 MG TABLET, ENT COATED PO SCH (09:25)
[2016-10-29] MEDS: ENOXAPARIN SODIUM INJ 40 MG/0.4 ML DISP.SYRIN SUBCUT SCH (09:25)
[2016-10-29] MEDS: METFORMIN HCL 500 MG TABLET PO SCH ×2 (09:25→18:19)
[2016-10-29] MEDS: GLYBURIDE 5 MG TABLET PO SCH ×2 (09:26→18:18)
[2016-10-29] MEDS: CHLORTHALIDONE 25 MG TABLET PO SCH (09:26)
[2016-10-29 09:49] LABS: ALANINE AMINOTRANSFERASE 42 U/L (9-52); ALBUMIN 4.1 g/dL (3.5-5.0); ALKALINE PHOSPHATASE 79 U/L (38-126); ANION GAP 13 (5-19); ASPARTATE AMINO TRANSFERASE 28 U/L (14-36); BILIRUBIN,DIRECT 0.3 mg/dL (0.0-0.4); BILIRUBIN,TOTAL 0.7 mg/dL (0.2-1.3); BLOOD UREA NITROGEN 40 mg/dL (7-20); CALCIUM 9.6 mg/dL (8.4-10.2); CARBON DIOXIDE 26 mmol/L (22-30); CHLORIDE 98 mmol/L (98-107); CREATININE RESULT 1.13 mg/dL (0.52-1.25); GLUCOSE 189 mg/dL (75-110); LIPASE 67.2 U/L (23-300); POTASSIUM 4.2 mmol/L (3.6-5.0); TOTAL PROTEIN 7.9 g/dL (6.3-8.2)
--- NOTE | 2016-10-29 10:32 | RADIOLOGY REPORT (SQ) ---
EXAM DESCRIPTION: CT HEAD WITHOUT COMPLETED DATE/TIME: 10/29/2016 10:17 am REASON FOR STUDY: acute neurologic chgs; eval for bleed COMPARISON: 10/27/2016. TECHNIQUE: Axial images acquired through the brain without intravenous contrast. Images reviewed wi th bone, brain and subdural windows. Images stored on PACS. All CT scanners at this facility use dose modulation, iterative reconstruction, and/or weight based d osing when appropriate to reduce radiation dose to as low as reasonably achievable (ALARA). [facility]: Dose Right [facility]: CareDose [facility]: Dose Right [facility]: Teradose 4D [facility]: Mercury Puzzle RADIATION DOSE: Up-to-date CT equipment and radiation dose reduction techniques were employed. CTDIv ol: 49.0 mGy. DLP: 783 mGy-cm. mGy. LIMITATIONS: None. FINDINGS: VENTRICLES: Prominent. CEREBRUM: No masses. No hemorrhage. No midline shift. Areas of low density in the white matter mos t likely due to chronic micro-vascular ischemic change. A few areas of decreased attenuation in the left basal ganglia are unchanged. No evidence for acute infarction. CEREBELLUM: No masses. No hemorrhage. No alteration of density. No evidence for acute infarction. EXTRAAXIAL SPACES: Mild age-related involutional change. No fluid collections. No masses. ORBITS AND GLOBE: No intra- or extraconal masses. Normal contour of globe without masses. CALVARIUM: No fracture. PARANASAL SINUSES: No fluid or mucosal thickening. SOFT TISSUES: No mass or hematoma. OTHER: No other significant finding. IMPRESSION: MILD CHRONIC CHANGES OF ATROPHY AND MICROVASCULAR ISCHEMIA. PROBABLE LACUNAR INFARCTS I N THE LEFT BASAL GANGLIA. NO SIGNIFICANT CHANGE. NO ACUTE PROCESS. TECHNICAL DOCUMENTATION: JOB ID: [id number] Quality ID # [id number]: Final reports with documentation of one or more dose reduction techniques (e.g., Au tomated exposure control, adjustment of the mA and/or kV according to patient size, use of iterative reconstruction technique) 2010 [employer]- All Rights Reserved
--- NOTE | 2016-10-29 10:47 | PDOC PROGRESS REPORT ---
Subjective Progress Note for:: 10/29/16 Subjective:: reason for visit: f/u CVA, poss UTI hospital course: per other'sn otes - " Era Barron is a 55-year-old female presenting to the emergency department with possible stroke symptoms. Patient states she had a weakness onset at 1300 yesterday and then numbness at 1500 yesterday. Patient also fell while trying to go to the bathroom last night. Patient does not complain of any injuries or head injuries related to the fall. Patient is experiencing weakness and numbness to her right hand/arm, right face, and right leg. Patient also has slurred speech. Her symptoms have not worsened or improved since the onset. Patient has history of type 2 diabetes mellitus, hypertension , hypothyroidism, and hyperlipidemia. Patient takes metformin, glyburide, chlorthalidone, Synthroid and a hyperlipidemia medication as well which she cannot remember the name of. Patient denies any history of stroke or coronary artery disease. Patient's family and friends are at the bedside. Patient's primary care physician is Dr. Jericho Wells in [place]." she was admitted to monitored bed without evidence for arrhythmia. ct head shows subacute basal ganglia infarct on the left likely accounting for her presentation. carotid dopplers neg for occlusive disease. lipid panel shows poor control especially in light of her CVA. HgA1c also poorly controlled at > 13. she was started on cipro 10/28 for dirty UA, poss UTI that culture initially shows no growth this morning. Overall her condition was improving until this morning, she is now experiencing nausea and vomiting after eating just a few bites of breakfast. she had no problems with dinner last night. she reports a global ANSARI that is throbbing, at times sharp and stabbing, others dul and aching, constant, nonradiating and no new neurologic findings otherwise. still has weakness of her Right side, no worse. denies vision changes, n/t. reports loose stools last night and again this morning, no fevers/chills, difficulty swallowing, choking/coughing/gagging. ROS: all systems reviewed, see above, remaining systems negative Physical Exam Vital Signs: Temp Pulse Resp BP Pulse Ox 97.8 F 88 18 118/60 97 10/29/16 07:13 10/29/16 08:00 10/29/16 08:00 10/29/16 08:00 10/29/16 08:35 Intake & Output 10/28/16 10/29/16 10/30/16 06:59 06:59 06:59 Intake Total 1000 797 Output Total 1600 500 Balance -600 297 Weight 75.4 kg 75.3 kg General appearance: PRESENT: mild distress, obese, well-developed, well- nourished Head exam: PRESENT: atraumatic, normocephalic Eye exam: PRESENT: EOMI. ABSENT: conjunctival injection, nystagmus, scleral icterus Mouth exam: PRESENT: moist, neck supple Neck exam: PRESENT: full ROM. ABSENT: carotid bruit, JVD, lymphadenopathy, meningismus, tenderness Respiratory exam: PRESENT: clear to auscultation lalo. ABSENT: accessory muscle use Cardiovascular exam: PRESENT: RRR. ABSENT: systolic murmur, tachycardia Pulses: PRESENT: normal radial pulses, normal dorsalis pedis pul Vascular exam: PRESENT: normal capillary refill GI/Abdominal exam: PRESENT: normal bowel sounds, soft. ABSENT: tenderness Extremities exam: ABSENT: calf tenderness, pedal edema Neurological exam: PRESENT: alert, awake, oriented to person, oriented to place , oriented to time, oriented to situation, other - Rt pronator drift, Rt arm and leg weakness; reflexes at patella normal; sensation normal to light touch globally; slurred "s" when speaking Psychiatric exam: PRESENT: appropriate affect, normal mood Skin exam: PRESENT: warm. ABSENT: dry, rash Results Laboratory Results: 10/28/16 03:41 10/29/16 09:20 10/29/16 09:20 Sodium 137.0 Potassium 4.2 Chloride 98 Carbon Dioxide 26 Anion Gap 13 BUN 40 H Creatinine 1.13 Est GFR ( Amer) > 60 Est GFR (Non-Af Amer) 50 L Glucose 189 H Calcium 9.6 Total Bilirubin 0.7 AST 28 ALT 42 Alkaline Phosphatase 79 Total Protein 7.9 Albumin 4.1 Lipase 67.2 Impressions: Chest X-Ray 10/27/16 10:08 IMPRESSION: NO ACUTE RADIOGRAPHIC FINDING IN THE CHEST. Carotid Doppler Study 10/28/16 00:00 IMPRESSION: NO HEMODYNAMICALLY SIGNIFICANT STENOSIS. Status: Image reviewed by me - agree with radiology Assessment & Plan - Diagnosis (1) Nausea & vomiting Qualifiers: Vomiting type: unspecified Vomiting Intractability: non-intractable Qualified Code(s): R11.2 - Nausea with vomiting, unspecified Is this a current diagnosis for this admission?: YesPlan: new; unclear etiologya but with worsening ANSARI and basal ganglia infarct worry about hemorrhage so will send for stat ct head. repeat routine labs unrevealing. possibly adverse reaction to the cipro and with negative urine culx will just stop that med to eliminate as confounder and monitor for response. (2) Acute lacunar infarction Is this a current diagnosis for this admission?: YesPlan: continue PT and looking for placement; continue statin, ASA and modify her risk factors as below (3) Diabetes Qualifiers: Diabetes mellitus type: type 2 Diabetes mellitus complication status: with neurologic complications Diabetes mellitus complication detail: with other neurological complication Diabetes mellitus senior living insulin use: without lobsterman use Qualified Code(s): E11.49 - Type 2 diabetes mellitus with other diabetic neurological complication Is this a current diagnosis for this admission?: YesPlan: poorly controlled, improved with treatment and diet while here. continue oral and insulin regimen. (4) Dyslipidemia Is this a current diagnosis for this admission?: YesPlan: poorly controlled; continue statin (5) Essential (primary) hypertension Is this a current diagnosis for this admission?: YesPlan: better controlled on current regimen (6) Hypothyroid Qualifiers: Hypothyroidism type: acquired Qualified Code(s): E03.9 - Hypothyroidism, unspecified Is this a current diagnosis for this admission?: YesPlan: controlled, continue synthroid (7) Obesity (BMI 30-39.9) Is this a current diagnosis for this admission?: Yes - Time Time Spent with patient: 25-34 minutes Medications reviewed and adjusted accordingly: Yes Anticipated discharge: SNF Within: within 24 hours - Plan Summary Plan Summary: stable for d/c to SNF when bed available
[2016-10-29 11:14] LABS: ABSOLUTE BASOPHILS # (AUTO) 0.1 10^3/uL (0.0-0.2); ABSOLUTE EOSINOPHILS # (AUTO) 0.2 10^3/uL (0.0-0.6); ABSOLUTE LYMPHOCYTES (AUTO) 1.4 10^3/uL (0.5-4.7); ABSOLUTE MONOCYTES (AUTO) 0.6 10^3/uL (0.1-1.4); ABSOLUTE NEUT (AUTO) 8.1 10^3/uL (1.7-8.2); BASOPHILS % (AUTO) 0.5 % (0-2); EOSINOPHILS % (AUTO) 2.1 % (0-6); HEMOGLOBIN 13.9 g/dL (12.0-15.5); HGB HCT DIFFERENCE -1.3; LYMPHOCYTES % (AUTO) 13.6 % (13-45); MEAN CORPUSCULAR HEMOGLOBIN 29.9 pg (27.0-33.4); MEAN CORPUSCULAR HGB CONC 32.4 g/dL (32.0-36.0); MEAN CORPUSCULAR VOLUME 92 fl (80-97); MONOCYTES % (AUTO) 5.7 % (3-13); RED BLOOD COUNT 4.67 10^6/uL (3.72-5.28); RED CELL DISTRIBUTION WIDTH 12.9 % (11.5-14.0); SEGMENTED NEUTROPHILS % (AUTO) 78.1 % (42-78); WHITE BLOOD COUNT 10.4 10^3/uL (4.0-10.5)
[2016-10-29] MEDS: INSULIN LISPRO 100 UNIT/ML 3 ML VIAL SUBCUT PRN (14:11)
[2016-10-29] MEDS: LANSOPRAZOLE 30 MG TAB.RAP.DR PO SCH (16:15)
[2016-10-29] MEDS: ATORVASTATIN CALCIUM 40 MG TABLET PO SCH (21:56)
[2016-10-29] MEDS: INSULIN GLARGINE,HUM.REC.ANLOG 300 UNIT/3 ML INSULN.PEN SUBCUT SCH (22:05)
[2016-10-30] MEDS: LANSOPRAZOLE 30 MG TAB.RAP.DR PO SCH ×2 (05:26→17:03)
[2016-10-30] MEDS: GLYBURIDE 5 MG TABLET PO SCH ×2 (09:57→17:03)
[2016-10-30] MEDS: LEVOTHYROXINE SODIUM 0.088 MG TABLET PO SCH (09:57)
[2016-10-30] MEDS: ASPIRIN 325 MG TABLET, ENT COATED PO SCH (09:57)
[2016-10-30] MEDS: ENOXAPARIN SODIUM INJ 40 MG/0.4 ML DISP.SYRIN SUBCUT SCH (09:57)
[2016-10-30] MEDS: BENAZEPRIL HCL 10 MG TABLET PO SCH (09:57)
[2016-10-30] MEDS: CHLORTHALIDONE 25 MG TABLET PO SCH (09:58)
--- NOTE | 2016-10-30 10:21 | PDOC PROGRESS REPORT ---
Subjective Progress Note for:: 10/30/16 Subjective:: reason for visit: f/u CVA, poss UTI hospital course: per other'sn otes - " Era Barron is a 55-year-old female presenting to the emergency department with possible stroke symptoms. Patient states she had a weakness onset at 1300 yesterday and then numbness at 1500 yesterday. Patient also fell while trying to go to the bathroom last night. Patient does not complain of any injuries or head injuries related to the fall. Patient is experiencing weakness and numbness to her right hand/arm, right face, and right leg. Patient also has slurred speech. Her symptoms have not worsened or improved since the onset. Patient has history of type 2 diabetes mellitus, hypertension , hypothyroidism, and hyperlipidemia. Patient takes metformin, glyburide, chlorthalidone, Synthroid and a hyperlipidemia medication as well which she cannot remember the name of. Patient denies any history of stroke or coronary artery disease. Patient's family and friends are at the bedside. Patient's primary care physician is Dr. Jericho Wells in [place]." she was admitted to monitored bed without evidence for arrhythmia. ct head shows subacute basal ganglia infarct on the left likely accounting for her presentation. carotid dopplers neg for occlusive disease. lipid panel shows poor control especially in light of her CVA. HgA1c also poorly controlled at > 13. she was started on cipro 10/28 for dirty UA, poss UTI that culture shows no growth again this morning. Overall her condition was improving until she developed nausea and vomiting after eating; that seems some better this morning after cessation of the abx. she reports improvement in global ANSARI that was throbbing, at times sharp and stabbing, others dul and aching, constant, nonradiating and no new neurologic findings otherwise. still has weakness of her Right side, no worse. denies vision changes, n/t. reports no stool last 24hrs, no fevers/chills, difficulty swallowing, choking/coughing/gagging. repeat ct head did not show any hemorrhage, no new findings. ROS: all systems reviewed, see above, remaining systems negative Physical Exam Vital Signs: Temp Pulse Resp BP Pulse Ox 97.5 F 82 14 111/61 100 10/30/16 04:58 10/30/16 08:00 10/30/16 08:00 10/30/16 08:00 10/30/16 08:00 Intake & Output 10/29/16 10/30/16 10/31/16 06:59 06:59 06:59 Intake Total 797 68 Output Total 500 1 Balance 297 67 Weight 75.3 kg 78.1 kg General appearance: PRESENT: no distress, obese, well-developed, well-nourished Head exam: PRESENT: atraumatic, normocephalic Eye exam: PRESENT: EOMI. ABSENT: conjunctival injection, nystagmus, scleral icterus Mouth exam: PRESENT: moist, neck supple Neck exam: PRESENT: full ROM. ABSENT: carotid bruit, JVD Respiratory exam: PRESENT: clear to auscultation lalo. ABSENT: accessory muscle use Cardiovascular exam: PRESENT: RRR. ABSENT: systolic murmur, tachycardia Pulses: PRESENT: normal radial pulses, normal dorsalis pedis pul Vascular exam: PRESENT: normal capillary refill GI/Abdominal exam: PRESENT: normal bowel sounds, soft. ABSENT: tenderness Extremities exam: ABSENT: calf tenderness, pedal edema Neurological exam: PRESENT: alert, awake, oriented to person, oriented to place , oriented to time, oriented to situation, other - Rt pronator drift, Rt arm and leg weakness; reflexes at patella normal; sensation normal to light touch globally; slurred "s" when speaking persists but no difficulty swallowing Psychiatric exam: PRESENT: appropriate affect, normal mood Skin exam: PRESENT: warm. ABSENT: dry, rash Results Laboratory Results: 10/29/16 09:20 10/29/16 09:20 10/29/16 09:20 WBC 10.4 RBC 4.67 Hgb 13.9 Hct 43.0 MCV 92 MCH 29.9 MCHC 32.4 RDW 12.9 Plt Count 277 Seg Neutrophils % 78.1 H Lymphocytes % 13.6 Monocytes % 5.7 Eosinophils % 2.1 Basophils % 0.5 Absolute Neutrophils 8.1 Absolute Lymphocytes 1.4 Absolute Monocytes 0.6 Absolute Eosinophils 0.2 Absolute Basophils 0.1 Impressions: Chest X-Ray 10/27/16 10:08 IMPRESSION: NO ACUTE RADIOGRAPHIC FINDING IN THE CHEST. Carotid Doppler Study 10/28/16 00:00 IMPRESSION: NO HEMODYNAMICALLY SIGNIFICANT STENOSIS. Head CT 10/29/16 00:00 IMPRESSION: MILD CHRONIC CHANGES OF ATROPHY AND MICROVASCULAR ISCHEMIA. PROBABLE LACUNAR INFARCTS IN THE LEFT BASAL GANGLIA. NO SIGNIFICANT CHANGE. NO ACUTE PROCESS. Status: Image reviewed by me - delmae with rads Assessment & Plan - Diagnosis (1) Nausea & vomiting Qualifiers: Vomiting type: unspecified Vomiting Intractability: non-intractable Qualified Code(s): R11.2 - Nausea with vomiting, unspecified Is this a current diagnosis for this admission?: YesPlan: improved with cessation of abx, possibly linked. advance diet as tolerated and continue to monitor. (2) Acute lacunar infarction Is this a current diagnosis for this admission?: YesPlan: continue PT and looking for placement; continue statin, ASA and modify her risk factors as below (3) Diabetes Qualifiers: Diabetes mellitus type: type 2 Diabetes mellitus complication status: with neurologic complications Diabetes mellitus complication detail: with other neurological complication Diabetes mellitus detention insulin use: without thread singer use Qualified Code(s): E11.49 - Type 2 diabetes mellitus with other diabetic neurological complication Is this a current diagnosis for this admission?: Yes (4) Dyslipidemia Is this a current diagnosis for this admission?: Yes (5) Essential (primary) hypertension Is this a current diagnosis for this admission?: Yes (6) Hypothyroid Qualifiers: Hypothyroidism type: acquired Qualified Code(s): E03.9 - Hypothyroidism, unspecified Is this a current diagnosis for this admission?: Yes (7) Obesity (BMI 30-39.9) Is this a current diagnosis for this admission?: Yes - Time Time Spent with patient: 15-24 minutes Anticipated discharge: Acute Rehab Within: within 24 hours - stable for transfer to rehab when bed available
[2016-10-30] MEDS: INSULIN LISPRO 100 UNIT/ML 3 ML VIAL SUBCUT PRN ×2 (13:21→17:03)
[2016-10-30] MEDS: ATORVASTATIN CALCIUM 40 MG TABLET PO SCH (21:03)
[2016-10-30] MEDS: INSULIN GLARGINE,HUM.REC.ANLOG 300 UNIT/3 ML INSULN.PEN SUBCUT SCH (22:55)
[2016-10-31] MEDS: LANSOPRAZOLE 30 MG TAB.RAP.DR PO SCH ×2 (06:49→16:42)
[2016-10-31] MEDS: INSULIN LISPRO 100 UNIT/ML 3 ML VIAL SUBCUT PRN ×4 (07:47→21:05)
[2016-10-31] MEDS ORDERED: POLYETHYLENE GLYCOL 3350 POWDER 17 GM/1 PACKET PO PRN (10:04)
--- NOTE | 2016-10-31 10:35 | PDOC PROGRESS REPORT ---
Subjective Progress Note for:: 10/31/16 Subjective:: reason for visit: f/u CVA, poss UTI hospital course: per other'sn otes - " Era Barron is a 55-year-old female presenting to the emergency department with possible stroke symptoms. Patient states she had a weakness onset at 1300 yesterday and then numbness at 1500 yesterday. Patient also fell while trying to go to the bathroom last night. Patient does not complain of any injuries or head injuries related to the fall. Patient is experiencing weakness and numbness to her right hand/arm, right face, and right leg. Patient also has slurred speech. Her symptoms have not worsened or improved since the onset. Patient has history of type 2 diabetes mellitus, hypertension , hypothyroidism, and hyperlipidemia. Patient takes metformin, glyburide, chlorthalidone, Synthroid and a hyperlipidemia medication as well which she cannot remember the name of. Patient denies any history of stroke or coronary artery disease. Patient's family and friends are at the bedside. Patient's primary care physician is Dr. Jericho Wells in [place]." she was admitted to monitored bed without evidence for arrhythmia. ct head shows subacute basal ganglia infarct on the left likely accounting for her presentation. carotid dopplers neg for occlusive disease. lipid panel shows poor control especially in light of her CVA. HgA1c also poorly controlled at > 13. she was started on cipro 10/28 for dirty UA, poss UTI that culture shows no growth. Overall her condition was improving until she developed nausea and vomiting after eating; that seems to have resolved after cessation of the abx. she reports improvement in global ANSARI that was throbbing, at times sharp and stabbing , others dul and aching, constant, nonradiating and no new neurologic findings otherwise. repeat ct head did not show any hemorrhage, no new findings. still has weakness of her Right side, no worse and in fact her leg seems stronger. denies vision changes, n/t. reports no stool last 24hrs, no fevers/chills, difficulty swallowing, choking/coughing/gagging. ROS: all systems reviewed, see above, remaining systems negative Physical Exam Vital Signs: Temp Pulse Resp BP Pulse Ox 98.5 F 85 16 115/72 100 10/31/16 07:41 10/31/16 07:41 10/31/16 07:41 10/31/16 07:41 10/31/16 07:41 Intake & Output 10/30/16 10/31/16 11/01/16 06:59 06:59 06:59 Intake Total 68 1241 Output Total 1 400 Balance 67 841 Weight 78.1 kg 78.5 kg General appearance: PRESENT: no distress, obese, well-developed, well-nourished Head exam: PRESENT: atraumatic, normocephalic Eye exam: PRESENT: EOMI. ABSENT: conjunctival injection, nystagmus, scleral icterus Mouth exam: PRESENT: moist, neck supple Neck exam: PRESENT: full ROM. ABSENT: carotid bruit, JVD Respiratory exam: PRESENT: clear to auscultation lalo. ABSENT: accessory muscle use Cardiovascular exam: PRESENT: RRR. ABSENT: systolic murmur, tachycardia Pulses: PRESENT: normal radial pulses, normal dorsalis pedis pul Vascular exam: PRESENT: normal capillary refill GI/Abdominal exam: PRESENT: normal bowel sounds, soft. ABSENT: tenderness Extremities exam: ABSENT: calf tenderness, pedal edema Neurological exam: PRESENT: alert, awake, oriented to person, oriented to place , oriented to time, oriented to situation, other - Rt pronator drift, Rt arm weakness, Rt leg improved strength and nearly symmetric to the left; reflexes at patella normal; sensation normal to light touch globally; slurred "s" when speaking persists but no difficulty swallowing Psychiatric exam: PRESENT: appropriate affect, normal mood Skin exam: PRESENT: warm. ABSENT: dry, rash Results Laboratory Results: 10/29/16 09:20 10/29/16 09:20 10/28/16 19:40 Clean Catch Midstream Urine Culture - Final Lactobacillus (Vaginal Ines) Assessment & Plan - Diagnosis (1) Acute lacunar infarction Is this a current diagnosis for this admission?: YesPlan: improved but not back to baseline; continue PT and looking for placement; continue statin, ASA and modify her risk factors as below (2) Diabetes Qualifiers: Diabetes mellitus type: type 2 Diabetes mellitus complication status: with neurologic complications Diabetes mellitus complication detail: with other neurological complication Diabetes mellitus shelter insulin use: without shelter use Qualified Code(s): E11.49 - Type 2 diabetes mellitus with other diabetic neurological complication Is this a current diagnosis for this admission?: Yes (3) Dyslipidemia Is this a current diagnosis for this admission?: Yes (4) Essential (primary) hypertension Is this a current diagnosis for this admission?: Yes (5) Hypothyroid Qualifiers: Hypothyroidism type: acquired Qualified Code(s): E03.9 - Hypothyroidism, unspecified Is this a current diagnosis for this admission?: Yes (6) Obesity (BMI 30-39.9) Is this a current diagnosis for this admission?: Yes (7) Nausea & vomiting Qualifiers: Vomiting type: unspecified Vomiting Intractability: non-intractable Qualified Code(s): R11.2 - Nausea with vomiting, unspecified Is this a current diagnosis for this admission?: YesPlan: resolved with cessation of abx. - Time Time Spent with patient: 15-24 minutes Anticipated discharge: Acute Rehab - when bed available
[2016-10-31] MEDS: LEVOTHYROXINE SODIUM 0.088 MG TABLET PO SCH (10:41)
[2016-10-31] MEDS: ASPIRIN 325 MG TABLET, ENT COATED PO SCH (10:41)
[2016-10-31] MEDS: ENOXAPARIN SODIUM INJ 40 MG/0.4 ML DISP.SYRIN SUBCUT SCH (10:41)
[2016-10-31] MEDS: BENAZEPRIL HCL 10 MG TABLET PO SCH (10:41)
[2016-10-31] MEDS: GLYBURIDE 5 MG TABLET PO SCH ×2 (10:41→18:00)
[2016-10-31] MEDS: CHLORTHALIDONE 25 MG TABLET PO SCH (10:41)
[2016-10-31] MEDS: DOCUSATE SODIUM 100 MG CAPSULE PO SCH (17:58)
[2016-10-31] MEDS: INSULIN GLARGINE,HUM.REC.ANLOG 300 UNIT/3 ML INSULN.PEN SUBCUT SCH (21:05)
[2016-10-31] MEDS: ATORVASTATIN CALCIUM 40 MG TABLET PO SCH (21:06)
[2016-11-01] MEDS: LANSOPRAZOLE 30 MG TAB.RAP.DR PO SCH (05:59)
--- NOTE | 2016-11-01 08:57 | PDOC TRANSFER SUMMARY ---
General - Admit/Disc Date/PCP Admission Date/Primary Care Provider: 10/27/16 10:42 DIANE WELLS MD Discharge Date: 11/01/16 - Discharge Diagnosis (1) Acute lacunar infarction Is this a current diagnosis for this admission?: YesSummary: transfer to acute rehab for ongoing PT/OT/ST; continue ASA, statin and ACEi (2) Diabetes Is this a current diagnosis for this admission?: YesSummary: poorly controlled with HgA1c >13; continue basal/bolus, hold metformin due to nausea and loss of appetite (3) Dyslipidemia Is this a current diagnosis for this admission?: YesSummary: poorly controlled in the given setting; continue statin and defer to PCP for dose titration and f/u (4) Essential (primary) hypertension Is this a current diagnosis for this admission?: YesSummary: well controlled on current regimen (5) Hypothyroid Is this a current diagnosis for this admission?: YesSummary: continue levothyroxine; defer to PCP for dose titration and f/u (6) Obesity (BMI 30-39.9) Is this a current diagnosis for this admission?: Yes (7) Nausea & vomiting Is this a current diagnosis for this admission?: YesSummary: likely 2/2 medication effect, either the empiric cipro for suspected UTI that failed to culture out or the metformin and resolved with cessation of these two. - Additional Information Resuscitation Status: Full Code Discharge Diet: Diabetic - regular consistency, thin liquids ok Discharge Activity: Slowly Increase Activity, Supervised Activity Home Medications: Chlorthalidone [Chlorthalidone 25 mg Tablet] 25 mg PO DAILY 10/28/16 Glyburide [Diabeta 5 mg Tablet] 10 mg PO BID 10/28/16 Levothyroxine Sodium [Synthroid 0.088 mg Tablet] 0.088 mg PO DAILY 10/28/16 Lisinopril [Prinivil 10 mg Tablet] 10 mg PO DAILY 10/28/16 Acetaminophen [Tylenol 325 mg Tablet] 650 mg PO Q4HP PRN tablet 11/01/16 Aspirin [Ecotrin 325 mg EC Tablet] 325 mg PO DAILY tabec 11/01/16 Atorvastatin Calcium [Lipitor 40 mg Tablet] 40 mg PO QHS tablet 11/01/16 Dextrose [Glutose 40% Gel 15 gm Tube] 15 gm PO PRN PRN tube 11/01/16 Dextrose [Glutose 40% Gel 15 gm Tube] 30 gm PO PRN PRN tube 11/01/16 Docusate Sodium [Colace 100 mg Capsule] 100 mg PO BID capsule 11/01/16 Enoxaparin Sodium [Lovenox Inj 40 mg/0.4 ml Disp.syrin] 40 mg SUBCUT DAILY disp.syrin 11/01/16 Glucagon,Human Recombinant [Glucagen Inj 1 mg Vial] 1 mg IM PRN PRN vial Hydrocodone/Acetaminophen [[place] 5-325 mg Tablet] 1 tab PO Q4HP PRN #10 tablet 11/01/16 Insulin Glargine,Hum.rec.anlog [Lantus Insulin 100 Unit/mL] 15 unit SUBCUT QHS insuln.pen 11/01/16 Insulin Lispro [Humalog Insulin (Lispro) 100 unit/mL] 0 - 12 unit SUBCUT ACHSP PRN unit 11/01/16 Lansoprazole [Prevacid 30 mg Odt Tablet] 30 mg PO BID@0600,1700 tab.rap. Normal Saline [Saline Flush 2.5 ml Monoject Prefil Syrin] 2.5 ml IV Q8 disp.syrin 11/01/16 Polyethylene Glycol 3350 [Miralax Powder 17 gm/Packet] 17 gm PO DAILYP PRN powd.pack 11/01/16 History of Present Illness Admission Date/PCP: 10/27/16 10:42 DIANE WELLS MD Patient complains of: right arm and leg weakness History of Present Illness: Era Barron is a 55-year-old female presenting to the emergency department with possible stroke symptoms. Patient states she had a weakness onset at 1300 yesterday and then numbness at 1500 yesterday. Patient also fell while trying to go to the bathroom last night. Hospital Course Hospital Course: from other's notes "Patient does not complain of any injuries or head injuries related to the fall. Patient is experiencing weakness and numbness to her right hand/arm, right face, and right leg. Patient also has slurred speech. Her symptoms have not worsened or improved since the onset. Patient has history of type 2 diabetes mellitus, hypertension, hypothyroidism, and hyperlipidemia. Patient takes metformin, glyburide, chlorthalidone, Synthroid and a hyperlipidemia medication as well which she cannot remember the name of. Patient denies any history of stroke or coronary artery disease. Patient's family and friends are at the bedside. Patient's primary care physician is Dr. Diane Wells in [place]." she was admitted to monitored bed without evidence for arrhythmia. ct head shows subacute basal ganglia infarct on the left likely accounting for her presentation. carotid dopplers neg for occlusive disease. lipid panel shows poor control especially in light of her CVA. HgA1c also poorly controlled at > 13. she was started on cipro 10/28 for dirty UA, poss UTI that culture shows no growth so abx were d/c'd after 2d. Overall her condition was improving until she developed nausea and vomiting after eating; that seems to have resolved after cessation of the abx. she reports improvement in global ANSARI that was throbbing, at times sharp and stabbing , others dul and aching, constant, nonradiating and no new neurologic findings otherwise. repeat ct head did not show any hemorrhage, no new findings. still has weakness of her Right side, no worse and in fact her leg seems stronger. denies vision changes, no fevers/chills, difficulty swallowing, choking/coughing/gagging. she has persistent Rt paresthesias as well but overall her condition is improving and she is stable for transfer to acute rehab to continue her PT/OT/ST. Physical Exam Vital Signs: Temp Pulse Resp BP Pulse Ox 97.3 F 83 20 124/68 100 11/01/16 03:31 11/01/16 03:31 11/01/16 03:31 11/01/16 03:31 11/01/16 03:31 Intake & Output 10/31/16 11/01/16 11/02/16 06:59 06:59 06:59 Intake Total 1241 904 Output Total 400 2400 Balance 841 -1496 Weight 78.5 kg 80.4 kg General appearance: PRESENT: no distress, obese, well-developed, well-nourished Head exam: PRESENT: atraumatic, normocephalic Eye exam: PRESENT: EOMI. ABSENT: conjunctival injection, nystagmus, scleral icterus Mouth exam: PRESENT: moist, neck supple Neck exam: PRESENT: full ROM. ABSENT: carotid bruit, JVD Respiratory exam: PRESENT: clear to auscultation lalo. ABSENT: accessory muscle use Cardiovascular exam: PRESENT: RRR. ABSENT: systolic murmur, tachycardia Pulses: PRESENT: normal radial pulses, normal dorsalis pedis pul Vascular exam: PRESENT: normal capillary refill GI/Abdominal exam: PRESENT: normal bowel sounds, soft. ABSENT: tenderness Extremities exam: ABSENT: calf tenderness, pedal edema Neurological exam: PRESENT: alert, awake, oriented to person, oriented to place , oriented to time, oriented to situation, other - Rt pronator drift, Rt arm weakness, Rt leg improved strength and nearly symmetric to the left; reflexes at patella normal; sensation normal to light touch globally; slurred "s" when speaking persists but no difficulty swallowing Psychiatric exam: PRESENT: appropriate affect, normal mood Skin exam: PRESENT: warm. ABSENT: dry, rash Results Laboratory Results: 10/29/16 09:20 10/29/16 09:20 Impressions: Chest X-Ray 10/27/16 10:08 IMPRESSION: NO ACUTE RADIOGRAPHIC FINDING IN THE CHEST. Carotid Doppler Study 10/28/16 00:00 IMPRESSION: NO HEMODYNAMICALLY SIGNIFICANT STENOSIS. Head CT 10/29/16 00:00 IMPRESSION: MILD CHRONIC CHANGES OF ATROPHY AND MICROVASCULAR ISCHEMIA. PROBABLE LACUNAR INFARCTS IN THE LEFT BASAL GANGLIA. NO SIGNIFICANT CHANGE. NO ACUTE PROCESS. Transfer Plan - Disposition Transfer Plan: to [facility] rehab for ongoing therapy hoping to transition - Time Spent with Patient Time spent with patient: Greater than 30 Minutes Qualifiers PATEINT BEING DISCHARGED WITH ANY OF THE FOLLOWING DIAGNOSIS?: Stroke VTE patient discharged on overlapping Therapy?: Yes Stroke Pt being discharged on Anti-thrombolytic therapy?: Yes Stroke Pt being discharged on Anti-coagulation therapy?: No Reason(s) for not prescribing Anti-coagulation therapy:: Not indicated Stroke Pt being discharged on Statins?: Yes
[2016-11-01] MEDS: DOCUSATE SODIUM 100 MG CAPSULE PO SCH (10:02)
[2016-11-01] MEDS: GLYBURIDE 5 MG TABLET PO SCH (10:02)
[2016-11-01] MEDS: CHLORTHALIDONE 25 MG TABLET PO SCH (10:02)
[2016-11-01] MEDS: LEVOTHYROXINE SODIUM 0.088 MG TABLET PO SCH (10:03)
[2016-11-01] MEDS: ASPIRIN 325 MG TABLET, ENT COATED PO SCH (10:03)
[2016-11-01] MEDS: ENOXAPARIN SODIUM INJ 40 MG/0.4 ML DISP.SYRIN SUBCUT SCH (10:04)
[2016-11-01 10:10] VITALS: BP 118/67
[2016-11-01] MEDS: BENAZEPRIL HCL 10 MG TABLET PO SCH (13:20)
== END 2016-11-01 13:53 | DRG 65 ==
LOC: EDBD → ER 08:48 → EH 10:42 → UNDOADMIN 10:44 → EH 10:44 → 3W 11:48
PROVIDERS: ADMIT Family Medicine; ATTEND Family Medicine
DX: I63.9 Cerebral infarction, unspecified (principal); G81.91 Hemiplegia, unspecified affecting right dominant side; E78.5 Hyperlipidemia, unspecified; R47.81 Slurred speech; R29.810 Facial weakness; I10 Essential (primary) hypertension; E03.9 Hypothyroidism, unspecified; E11.9 Type 2 diabetes mellitus without complications; R11.2 Nausea with vomiting, unspecified; E66.9 Obesity, unspecified; Z68.38 Body mass index [BMI] 38.0-38.9, adult; Z79.4 Long term (current) use of insulin; Z79.899 Other long term (current) drug therapy; Z98.51 Tubal ligation status; Z82.3 Family history of stroke; Z91.81 History of falling; Z83.3 Family history of diabetes mellitus; Z79.84 Long term (current) use of oral hypoglycemic drugs
CPT/HCPCS: 36415; 70450; 71010; 80053; 80061; 81001; 82550; 82553; 82962; 83036; 83690; 84484; 85025; 85610; 85730; 87086; 93005; 93010; 93880; 94660; 99285; J1650; J1815; J2405; J3490